=== PATIENT | female | born 1995 | race Hispanic/Latino ===

== ENCOUNTER → 2024-03-04 | Outpatient (CLI) | payer OTHER ==
--- NOTE | 2024-03-04 16:01 | HMCIMG ---
FEMUR 2VW RIGHT HISTORY: Right thigh contusion COMPARISON: None TECHNIQUE: 4 images of right femur were obtained. FINDINGS: There is no acute displaced fracture or dislocation. Degenerative changes are seen. IMPRESSION: 1. Findings as described above.
== END | disposition home or self-care (01) ==
LOC: RAH 14:42
PROVIDERS: ATTEND Family Medicine Adult Medicine
DX: S70.11XD Contusion of right thigh, subsequent encounter (principal); M16.11 Unilateral primary osteoarthritis, right hip; X58.XXXD Exposure to other specified factors, subsequent encounter
CPT/HCPCS: 73552